=== PATIENT | male | born 1955 | race Caucasian/White ===

== ENCOUNTER 2018-09-01 10:06 | Outpatient (REF) | payer BC, SELFPAY ==
[2018-09-01 20:57] LABS: Calculated LDL 123; Cholesterol 198 mg/dL (50-200); Glucose 107 mg/dL (70-100); HDL Cholesterol 68 mg/dL (40-60); Triglyceride 37 mg/dL (30-150)
== END 2018-09-01 10:26 ==
LOC: NCHCN 10:06
PROVIDERS: PCP Family Medicine; Visit Provider Nurse Practitioner Family
DX: Z00.00 Encounter for general adult medical examination without abnormal findings (principal); Z13.1 Encounter for screening for diabetes mellitus; Z13.220 Encounter for screening for lipoid disorders
CPT/HCPCS: 80061; 82947; 83721

== ENCOUNTER 2018-09-01 13:38 | Emergency (ER) | payer BC, SELFPAY ==
--- NOTE | 2018-09-01 13:53 | ED.GENADUL_ITS ---
Discharge Plan Disposition Patient Disposition: HOME Condition: Stable Discharge Details Chief Complaint: Laceration Clinical Impression: Laceration of left wrist Primary Care Provider: Kylie Ray V ED Provider: Boni Malhotra Home Meds and New Rx's Prescriptions: No Action BETHANECHOL CREAM BID PRNRF: 0 naproxen sodium [Aleve] 220 MG capsule 1 cap PO HS PRNRF: 0 Discharge Instructions Instructions: Laceration (ED) Additional Instructions: return in 7 days to have the wound evaluated for suture removal. Return sooner if signs of infection develop such as spreading redness or yellow/white discharge Medical Decision Making Pt was working on his roof when he sustained a laceration to the wrist, denies falling or other injuries. Has a 3cm laceration over the left anterior wrist, full rom and intact sensation so doubt tendon or neurovascular injury, normal pulses and cap refill. Did not fall or hit head, no pain elsewhere. Will suture and d/c home Differential Diagnosis laceration, abrasion HPI General Mode of arrival: ambulatory . Date/Time Provider Initiated Documentation: 09/01/18 13:41 . Limitations to Documentation: no limitations . Information obtained by: patient . History of Present Illness 63 year old M presents to the emergency department with the chief complaint of wrist laceration, described as moderate, Quality is described as aching, and is localized to the left and upper extremity. Patient reports no radiation. Patient started experiencing this hour(s) (1) and it has been constant. No relieving factors improve symptom(s), No exacerbating factors reported . Patient notes no other symptoms.. Related Data Home Medications Medication Instructions Recorded Confirmed Bethanechol Cream BID PRN NS 08/26/12 naproxen sodium [Aleve] 1 cap PO HS PRN 11/02/17 09/01/18 Allergies Allergy/AdvReac Type Severity Reaction Status Date / Time No Known Allergies Allergy Unverified 09/01/18 14:02 Review of Systems Review of Systems All systems reviewed & are unremarkable except as noted in HPI and below Constitutional Denies weakness Cardiovascular Denies chest pain and Denies dyspnea Respiratory Denies dyspnea Gastrointestinal Denies vomiting Neurologic Denies weakness PFSH Medical History Bursitis, knee Epistaxis, recurrent History of tobacco use Hyperglycemia Lichen simplex Tubular adenoma of colon Surgical History Colonoscopy - MAC (11/05/17) Fracture, Open Treatment Social History Smoking/Tobacco Use Status: Former Tobacco Use Alcohol Intake: never Drug use: Never Do you feel safe at home: Yes Do you feel safe in your relationship?: Yes Exam Const General: no acute distress Orientation: alert HENMT Head: normal to inspection Ears: external ears normal General nose exam: external nose normal Mouth: moist mucous membranes Eyes General: appearance normal, both eyes and all related structures Neck Neck: normal visual inspection Resp Effort & Inspection: normal respiratory effort and able to speak in complete sentences Cardio Rate: regular rate Skin General skin exam: no rashes or lesions noted Neuro General: alert and oriented x3 Extrem General: full ROM and normal capillary refill Psych Mental Status: mental status grossly normal Procedures Laceration Laceration 1: Site: upper extremity Side (If applicable): left Size (cm): 3 Description: linear Depth: simple, single layer Local Anesthetic: Lidocaine 2% and with Epi Amount of anesthesia used (mL): 6 Pre-repair: wound explored and irrigated extensively Skin layer closed with: vicryl Size (cm): 5-0 Number of sutures: 5 Technique: simple, interrupted
[2018-09-01 13:56] VITALS: BP 102/61; PULSE 66; RESP 16; TEMP 36.5; O2SAT 96
[2018-09-01 14:39] VITALS: BP 126/79; PULSE 67; RESP 12; O2SAT 97
[2018-09-01 14:40] VITALS: BP 126/79; PULSE 67; RESP 12; O2SAT 97
== END 2018-09-01 14:40 | disposition home or self-care (01) ==
PROVIDERS: Emergency Provider Emergency Medicine; PCP Family Medicine
DX: S61.512A Laceration without foreign body of left wrist, initial encounter (principal); X58.XXXA Exposure to other specified factors, initial encounter
CPT/HCPCS: 12002

== ENCOUNTER 2018-09-08 14:23 | Emergency (ER) | payer BC, SELFPAY ==
[2018-09-08 14:26] VITALS: BP 130/74; PULSE 70; RESP 12; TEMP 36.8; O2SAT 98
--- NOTE | 2018-09-08 14:36 | ED.GENADUL_ITS ---
Discharge Plan Disposition Patient Disposition: HOME Condition: Improving Discharge Details Chief Complaint: SutureRem Clinical Impression: Encounter for removal of sutures Primary Care Provider: Kylie Ray V ED Provider: Chi Hooper Home Meds and New Rx's Prescriptions: Continued BETHANECHOL CREAM BID PRNRF: 0 naproxen sodium [Aleve] 220 MG capsule 1 cap PO HS PRNRF: 0 Discharge Instructions Additional Instructions: Return for any acute concerns. Medical Decision Making 63-year-old male presents from home for uneventful suture removal from left palmar laceration that is well-healed. Removed without difficulty and patient stable for discharge HPI General Mode of arrival: ambulatory . Date/Time Provider Initiated Documentation: 09/08/18 14:31 . Limitations to Documentation: no limitations . Information obtained by: patient . History of Present Illness 63 year old M presents to the emergency department with the chief complaint of Suture removal left palm, no complaints, no fever or discharge, Related Data Home Medications Medication Instructions Recorded Confirmed Bethanechol Cream BID PRN NS 08/26/12 naproxen sodium [Aleve] 1 cap PO HS PRN 11/02/17 09/01/18 Allergies Allergy/AdvReac Type Severity Reaction Status Date / Time No Known Allergies Allergy Unverified 09/01/18 14:02 General Stated Complaint: SutureRem YAEL: 5 Review of Systems Review of Systems 4 systems reviewed and otherwise negative [facility] Medical History Bursitis, knee Epistaxis, recurrent History of tobacco use Hyperglycemia Lichen simplex Tubular adenoma of colon Surgical History Colonoscopy - MAC (11/05/17) Fracture, Open Treatment Social History Smoking/Tobacco Use Status: Former Tobacco Use Alcohol Intake: never Drug use: Never Do you feel safe at home: Yes Do you feel safe in your relationship?: Yes Exam Narrative Exam Narrative: GEN: awake, alert, oriented 3. Pleasant, well groomed, interactive. HEAD: Normocephalic, atraumatic ENT: Mucous membranes moist, oropharynx unremarkable, External ear exam unremarkable EYES: PERRL, EOMI EXT: Full ROM. Left palm with thenar eminence sutures in place over healing laceration. Neuro: Grossly normal neurologic exam, conversant, interactive. Psych: Speech fluent, thoughts congruent, affect normal Course Vital Signs Temperature 36.8 C 09/08/18 14:26 Pulse 70 09/08/18 14:26 Respiratory Rate 12 09/08/18 14:26 Blood Pressure 130/74 09/08/18 14:26 Pulse Oximetry 98 09/08/18 14:26 Temperature 36.8 C 09/08/18 14:26 Temperature Source Temporal Artery Scan 09/08/18 14:26 Pulse 70 09/08/18 14:26 Respiratory Rate 12 09/08/18 14:26 Respiratory Effort Non-Labored 09/08/18 14:27 Blood Pressure 130/74 09/08/18 14:26 Blood Pressure Position Sitting 09/08/18 14:26 Pulse Oximetry 98 09/08/18 14:26 Oxygen Delivery Method Room Air 09/08/18 14:26 Oxygen Flow Rate 0 09/08/18 14:26 Pain Level 0 09/08/18 14:26
== END 2018-09-08 14:43 | disposition home or self-care (01) ==
PROVIDERS: Emergency Provider Emergency Medicine; PCP Family Medicine
DX: S61.412D Laceration without foreign body of left hand, subsequent encounter (principal); X58.XXXD Exposure to other specified factors, subsequent encounter; Z48.02 Encounter for removal of sutures

== ENCOUNTER 2019-10-09 15:13 | Outpatient (REF) | payer BC, SELFPAY ==
[2019-10-09 22:09] LABS: Bacteria Negative HPF (Negative); C & S Indicated? No; Crystals Negative HPF (Negative); Epithelial Cells Few HPF (Negative); Mucus Heavy (Negative); RBC 0-2 HPF (0-2); WBC 0-2 HPF (0-5)
[2019-10-10 00:01] LABS: Anion Gap 13.6 mmol/L (3-11); BUN 13 mg/dL (7-18); CO2 22.4 mmol/L (21.0-32.0); CREATININE 1.18 mg/dL (0.70-1.30); Calcium 9.5 mg/dL (8.5-10.1); Calculated LDL 116 mg/dL (<100); Chloride 105 mmol/L (98-107); Cholesterol 200 mg/dL (<200); Glucose 104 mg/dL (74-106); HDL Cholesterol 69 mg/dL (40-60); Magnesium 2.1 mg/dL (1.8-2.4); Potassium 3.9 mmol/L (3.5-5.1); Sodium 141 mmol/L (136-145); Triglyceride 79 mg/dL (<150)
[2019-10-11 09:21] LABS: PSA, Screening 1.6 ng/mL (0.0-4.5)
== END 2019-10-09 15:33 ==
LOC: NCHCN 15:13
PROVIDERS: PCP Family Medicine; Visit Provider Nurse Practitioner Family
DX: Z00.00 Encounter for general adult medical examination without abnormal findings (principal); R73.03 Prediabetes; F52.21 Male erectile disorder; Z12.5 Encounter for screening for malignant neoplasm of prostate
CPT/HCPCS: 80048; 80061; 84153; 81015; 83735; 84443

== ENCOUNTER 2020-10-15 09:15 | Outpatient (REF) | payer MEDICARE, BC, SELFPAY ==
[2020-10-15 21:00] LABS: Calculated LDL 112 mg/dL (<100); Cholesterol 184 mg/dL (<200); Glucose 111 mg/dL (74-106); HDL Cholesterol 64 mg/dL (40-60); Triglyceride 43 mg/dL (<150)
[2020-10-24 09:22] LABS: Testosterone, Free 11.9 ng/dL (3.47-13.0); Testosterone, Total 597 ng/dL (240-950)
== END 2020-10-15 09:16 | disposition home or self-care (01) ==
LOC: NCHCN 09:15
PROVIDERS: PCP Family Medicine; Visit Provider Nurse Practitioner Family
DX: Z00.00 Encounter for general adult medical examination without abnormal findings (principal)
CPT/HCPCS: 80061; 82947; 84402; 84403

== ENCOUNTER 2021-10-15 13:55 | Outpatient (REF) | payer MEDICARE, BC, SELFPAY ==
[2021-10-15 15:37] LABS: Calculated LDL 110 mg/dL (<100); Cholesterol 183 mg/dL (<200); Glucose 126 mg/dL (74-106); HDL Cholesterol 66 mg/dL (40-60); Triglyceride 35 mg/dL (<150)
== END 2021-10-15 13:56 | disposition home or self-care (01) ==
LOC: NCHCN 13:55
PROVIDERS: PCP Family Medicine; Visit Provider Nurse Practitioner Family
DX: R73.03 Prediabetes (principal); N52.9 Male erectile dysfunction, unspecified; Z13.220 Encounter for screening for lipoid disorders
CPT/HCPCS: 80061; 82947

== ENCOUNTER → 2021-11-26 09:45 | Outpatient (BNVA) | payer MEDICARE, BC, SELFPAY | PROVIDERS: PCP Family Medicine; Referring Provider Family Medicine; Visit Provider Nurse Practitioner Gerontology | DX: N52.9 Male erectile dysfunction, unspecified (principal) | CPT/HCPCS: 99214 ==

== ENCOUNTER → 2022-11-25 09:19 | Outpatient (BNVA) | payer MEDICARE, BC, SELFPAY | PROVIDERS: PCP Family Medicine; Visit Provider Nurse Practitioner Gerontology | DX: N52.9 Male erectile dysfunction, unspecified (principal) | CPT/HCPCS: 99213 ==

== ENCOUNTER → 2023-11-24 09:24 | Outpatient (BNVA) | payer MEDICARE, BC, SELFPAY | PROVIDERS: PCP Family Medicine; Referring Provider Family Medicine; Visit Provider Nurse Practitioner Gerontology | DX: N52.9 Male erectile dysfunction, unspecified (principal) | CPT/HCPCS: 99213 ==

== ENCOUNTER 2024-01-25 23:59 | Outpatient (REF) | payer MEDICARE, BC, SELFPAY ==
[2024-01-26 08:37] LABS: PSA, Screening 2.1 ng/mL (<=4.5)
== END 2024-01-26 | disposition home or self-care (01) ==
LOC: NCHCN 23:59
PROVIDERS: PCP Family Medicine; Visit Provider Family Medicine
DX: Z12.5 Encounter for screening for malignant neoplasm of prostate (principal)
CPT/HCPCS: 84153

== ENCOUNTER → 2024-11-22 08:43 | Outpatient (BNVA) | payer MEDICARE, BC, SELFPAY | PROVIDERS: PCP Family Medicine; Visit Provider Nurse Practitioner Gerontology | DX: N52.9 Male erectile dysfunction, unspecified (principal) | CPT/HCPCS: 99213 ==